=== PATIENT | male | born 1945 | race Two or more races ===

== ENCOUNTER 2021-01-29 11:30 | Inpatient (IN) | payer OTHER ==
[~2021-01-29] VITALS: Ht 167.6 cm; Wt 87.5 kg
[2021-01-29] MEDS ORDERED: ALDACTONE25 MG PO (15:01)
[2021-01-29] MEDS ORDERED: FORTAMET500 MG PO (15:02)
[2021-01-29] MEDS ORDERED: PLAVIX75 MG PO (15:02)
[2021-01-29] MEDS ORDERED: ZIAC PO (15:03)
[2021-01-29] MEDS ORDERED: LEVOTH PO (15:03)
[2021-01-29] MEDS ORDERED: TRICOR145 MG PO (15:04)
[2021-03-02] MEDS ORDERED: COLACE100 MG PO (07:58)
[2021-03-02] MEDS ORDERED: DIAZEPAM5 MG PO (07:58)
[2021-03-02] MEDS ORDERED: PERCOCET 5-3251 EACH PO (07:58)
[2021-03-02] MEDS ORDERED: MEDROLPACK PO (07:58)
== END 2021-03-03 12:35 | disposition home or self-care (01) | DRG 473 ==
LOC: ADM 11:30 → EDSTATUS 11:30 → EDBD 02-05 11:30 → SURH 02-05 11:30 → O/R 03-02 04:57 → SURH 03-02 04:57
PROVIDERS: ADMIT Orthopaedic Surgery Orthopaedic Surgery of the Spine; ATTEND Orthopaedic Surgery Orthopaedic Surgery of the Spine
PROC: 0RT30ZZ Resection of Cervical Vertebral Disc, Open Approach (ICD-10-PCS; 2021-03-02)
PROC: 0RG10A0 Fusion of Cervical Vertebral Joint with Interbody Fusion Device, Anterior Approach, Anterior Column, Open Approach (ICD-10-PCS; 2021-03-02)
PROC: 07DS0ZZ Extraction of Vertebral Bone Marrow, Open Approach (ICD-10-PCS; 2021-03-02)
PROC: 0RG10A0 Fusion of Cervical Vertebral Joint with Interbody Fusion Device, Anterior Approach, Anterior Column, Open Approach (ICD-10-PCS; principal; 2021-03-02 08:00)
DX: M50.021 Cervical disc disorder at C4-C5 level with myelopathy (principal)

== ENCOUNTER 2021-02-25 07:42 | Outpatient (CLI) | payer OTHER ==
[~2021-02-25 07:42] MED LIST: ALDACTONE25 MG PO; FORTAMET500 MG PO; LEVOTH PO; PLAVIX75 MG PO; TRICOR145 MG PO; ZIAC PO
== END 2021-02-25 15:00 | disposition home or self-care (01) ==
LOC: LAB 07:42
PROVIDERS: ATTEND Orthopaedic Surgery Orthopaedic Surgery of the Spine
DX: Z20.828 Contact with and (suspected) exposure to other viral communicable diseases (principal); Z03.818 Encounter for observation for suspected exposure to other biological agents ruled out